=== PATIENT | female | born 1925 | race Caucasian/White ===

== ENCOUNTER → 2016-12-05 | Outpatient (CLI) | payer OTHER, BC ==
[~2016-12-05] MED LIST: ASPEC81 PO; CARB25TA12 PO; CEPH500C PO; CLC100 PO; ERGO500037 PO; FOCUS SELECT PO; FURO40TA3 PO; PANT40TA PO; PRED1SUS3 OPR; RXC5 PO; SPIR25TA89 PO
[2016-12-05 10:58] LABS: BASO % 0.6 %; BASO ABS # 0.04 K/uL (0-0.2); COMPLETE YES; EOS % 2.7 %; HEMATOCRIT 40.9 % (37-47); IG% 0.2 %; MEAN CELL VOLUME 92.7 fL (80-100); MEAN CORPUSCULAR HEMOGLOBIN 31.1 pg (25-34); MEAN CORPUSCULAR HGB CONC 33.5 g/dl (32-36); MEAN PLATELET VOLUME 10.6 fL (7.4-10.4); MONO % 6.3 %; NEUT % 61.2 %; PLATELET COUNT 272 K/uL (130-400); RED BLOOD COUNT 4.41 M/uL (4.2-5.4); WHITE BLOOD COUNT 6.56 K/uL (4.8-10.8)
== END | disposition home or self-care (01) ==
LOC: C.LABFOXDH 15:49
PROVIDERS: ATTEND Nurse Practitioner Family
DX: M79.605 Pain in left leg (principal)

== ENCOUNTER → 2016-12-08 | Outpatient (CLI) | payer OTHER, BC | END | disposition home or self-care (01) | LOC: C.LABFOXDH 08:52 | PROVIDERS: ATTEND Internal Medicine | DX: M25.50 Pain in unspecified joint (principal) ==

== ENCOUNTER → 2016-12-18 | Outpatient (CLI) | payer OTHER, BC | END | disposition home or self-care (01) | LOC: C.LABFOXDH 11:51 | PROVIDERS: ATTEND Nurse Practitioner Family | DX: R39.15 Urgency of urination (principal) ==

== ENCOUNTER → 2017-01-19 | Outpatient (CLI) | payer OTHER, BC ==
--- NOTE | 2017-01-20 11:23 | CODING QUERY NO DIAGNOSIS ---
TREATMENT RENDERED WITHOUT A DIAGNOSIS 05/21/27 To promote full compliance with coding requirements relating to patient care, physician participation is requested in all cases of refresh technician uncertainty. Please assist us with providing a diagnosis/symptom for the test(s) below: A diagnosis/symptom was not documented on your Order. A valid diagnosis/symptom is required to bill all insurances. Please remember that we are unable to code a diagnosis of rule out, probable, possible, questionable, or suspected. DOS 01/19/17 Tests that require a diagnosis: * URIC ACID DIAGNOSIS: *ON YOUR ORDER YOU HAVE DX CODE M10, THIS IS AN INVALID CODE, CAN YOU PLEASE ADD CORRECT DX CODE Provider Signature: Date: Thank you Nuris Larsen Health Information Management Once completed, please kindly fax back to [phone] For questions please call [phone]
== END ==
LOC: C.LABFOXDH 09:51
PROVIDERS: ATTEND Nurse Practitioner Family
DX: M25.50 Pain in unspecified joint (principal)

== ENCOUNTER → 2017-02-06 | Outpatient (CLI) | payer OTHER, BC ==
[2017-02-06 12:34] LABS: HEMATOCRIT 41.6 % (37-47); MEAN CELL VOLUME 95.9 fL (80-100); MEAN CORPUSCULAR HEMOGLOBIN 30.9 pg (25-34); MEAN CORPUSCULAR HGB CONC 32.2 g/dl (32-36); MEAN PLATELET VOLUME 10.5 fL (7.4-10.4); PLATELET COUNT 263 K/uL (130-400); RED BLOOD COUNT 4.34 M/uL (4.2-5.4); WHITE BLOOD COUNT 6.15 K/uL (4.8-10.8)
[2017-02-06 12:57] LABS: BLOOD UREA NITROGEN 20 mg/dl (7-18); BUN/CREATININE RATIO 20.2 (10-20); CARBON DIOXIDE 33 mmol/L (21-32); CHLORIDE 103 mmol/L (98-107); GLUCOSE 109 mg/dl (70-99); POTASSIUM 3.7 mmol/L (3.5-5.1); SODIUM 143 mmol/L (136-145)
== END ==
LOC: C.LABFOXDH 09:08
PROVIDERS: ATTEND Internal Medicine
DX: I10 Essential (primary) hypertension (principal); M26.629 Arthralgia of temporomandibular joint, unspecified side

== ENCOUNTER 2017-03-05 19:58 | Emergency (ER) | payer OTHER, BC ==
[~2017-03-05] VITALS: Ht 157.5 cm; Wt 70.0 kg
[~2017-03-05 19:58] MED LIST changes: -CEPH500C PO
[2017-03-05 20:04] VITALS: TEMP 36.6; Ht 157.5 cm; Wt 70.0 kg
[2017-03-05] MEDS ORDERED: LIDOCAINE/EPINEPHRINE 1% 20 ML VIAL ONE (20:14)
[2017-03-05] MEDS ORDERED: CEPHALEXIN 500MG HOME PACK 1 EA BTL PO ONE (20:45)
[2017-03-05] MEDS ORDERED: CEPH500C PO (20:49)
--- NOTE | 2017-03-05 20:51 | EMERGENCY ROOM VISIT NOTE ---
History First contact with patient: 20:08 Chief Complaint: LACERATION/CUT (SUT/DERMABOND) Stated Complaint: Laceration Nursing Triage Summary: pt to the ED [facility] from [facility] where one of the nurses there was taking off a stocking and cut pt out left ankle/cabrera with her finger nail and there is a laceration/skin tear has been bleeding since. the dr there cauterized it and it is still bleeding this happened around noon per pt History of Present Illness The patient is a 89 year old female who presents to the Emergency Room with complaints of left leg laceration. The patient resides at [facility]. The patient states that today she had her toenails cut. She states that the nurse was helping with her stockings and accidentally cut the patient's leg with her fingernail. They attempted to cauterize the wound and apply a dressing but it continues to bleed. The patient states this occurred around 2 PM. The patient did not fall or have any other injuries. The patient takes aspirin. She states she does not take any anticoagulants. The patient states her tetanus is up-to-date. Review of Systems A 6 system review of systems was completed with positives and pertinent negatives listed in the HPI. Past Medical/Surgical History Medical Problems: (1) Coronary Atherosclerosis Of [place] Coronary Vessel (2) Depressive Disorder Nec (3) Esophageal Reflux (4) Hyperlipidemia Nec/Nos (5) Hypertension Nos (6) Lumbago (7) Osteoarthros Nos-Unspec (8) Other Lymphedema Surgical Problems: (1) Hip Joint Replacement Status Social History Smoking Status: Never Smoker Alcohol Use: none Marital Status: Housing Status: assisted living Occupation Status: retired Current/Historical Medications Scheduled Aspirin (Aspirin EC Low Dose), 81 MG PO BID Carbidopa/Levodopa (Sinemet 25MG/100MG), 1 TAB PO TID Cephalexin Monohydrate (Keflex), 500 MG PO BID Docusate Sodium (Docusate Sodium), 100 MG PO BID Ergocalciferol (Vitamin D 14820 Unit), 50,000 UNIT PO 2XWK Furosemide (Lasix), 40 MG PO QAM Pantoprazole (Protonix), 1 TAB PO QAM Prednisolone Acetate 1% Oph (Pred Forte 1% Oph), 1 DROP OPR BID Spironolactone (Aldactone), 25 MG PO QAM [Focus Select], 1 TAB PO BID Scheduled PRN Oxycodone HCl (Oxycodone HCl), 5-10 MG PO Q4H PRN for Pain Allergies Coded Allergies: Iodine (Verified Allergy, Unknown, 11/28/15) Codeine (Verified Adverse Reaction, Mild, VOMITTING, 11/28/15) Adhesives (Verified Adverse Reaction, Unknown, 11/28/15) Fish Allergy (Verified Adverse Reaction, Unknown, Unknown Rxn, 11/28/15) Physical Exam Vital Signs Date Time Temp Pulse Resp B/P (MAP) Pulse Ox O2 Delivery O2 Flow Rate FiO2 03/05/17 22:01 88 20 145/80 98 03/05/17 21:00 80 18 150/88 98 03/05/17 20:04 36.6 74 18 162/87 98 Physical Exam VITALS: Vitals are noted on the nurse's note and reviewed by myself. Vital signs stable. GENERAL: This is an 89-year-old female, in no acute distress, nondiaphoretic, well-developed well-nourished. SKIN: There is a deep skin tear to the left lateral. The laceration measures approximately 4 cm in total length. There is a small arterial bleed. The wound edges gape with traction. The skin is very thin. There is no tenting of the skin. Capillary reflex less than 2 seconds. HEAD: Normocephalic atraumatic. EARS: The external ears are normal in appearance EYES: Pupils equal round and reactive to light and accommodation. Conjunctivae without injection, sclerae without icterus. Extraocular movements intact. NOSE: Patent, turbinates without inflammation or discharge. MOUTH: Mucous membranes moist. NECK: Supple without nuchal rigidity. No JVD. HEART: Regular rate and rhythm . LUNGS: Clear to auscultation bilaterally without wheezes, rales or rhonchi. No retractions or accessory muscle use. MUSCULOSKELETAL: There are chronic venous stasis changes to the bilateral lower extremities. There is a laceration to the left leg as above. Remaining extremities are otherwise unremarkable. NEURO: Patient was alert and oriented to person place and time. No focal neurological deficits. Medical Decision & Procedures Medications Administered Medications (Trade) Dose Ordered Sig/Mendy Route Start Time Stop Time Status Last Admin Dose Admin Cephalexin Monohydrate (Keflex 500MG Home Pack) 1 homepack NOW ONCE PO 03/05/17 20:45 03/05/17 20:46 DC 03/05/17 20:45 1 HOMEPACK Procedure Using sterile technique the wound was cleaned with Betadine. The area was sterilely draped. 3 ml of 1% buffered lidocaine with epinephrine was used to anesthetize the skin. Once the patient was numb, the wound was copiously irrigated under pressure with sterile saline. The wound was explored and there were no deep structures such as tendons, bone, or ligaments present. The small bleeding vessel was ligated with one simple interrupted 6-0 fast absorbing suture. The laceration was repaired using 9 simple interrupted 5-0 nylon sutures with the wound edges being well approximated. The skin is very thin and the sutures may pull through. The patient was advised of this. The patient tolerated the procedure well. The bleeding stopped. The area was cleaned with sterile saline and dressed with bacitracin ointment and bandage. An Ezra wrap was placed. ED Course The patient was seen and examined. Previous visits were reviewed. The patient has a skin tear/laceration with a bleeding vessel to the left leg. It was repaired as above. The patient does have very thin skin and it is possible that the sutures will pull through. She may eventually need to see the wound care center if this wound does not heal well. The patient will be placed on a short course of Keflex to help prevent infection given that this was from a fingernail and occurred over 6 hours ago. A pressure dressing was applied. The patient should return to the ER if any worsening symptoms. Otherwise, she should follow closely with Dr. House. The patient was also seen and examined by who agrees with the assessment and treatment plan. Medication Reconciliation: I attest that I have personally reviewed the patient' s current medication list. Blood pressure screening: The patient was found to have an elevated blood pressure and was referred to their primary care doctor for recheck and further treatment Medical Decision Differential diagnosis includes laceration, skin tear, arterial bleeding, cellulitis, foreign body, and others Impression Primary Impression: Laceration of leg Additional Impression: Skin tear Departure Information Dispostion Home / Self-Care Condition GOOD Prescriptions Cephalexin Monohydrate (Keflex) 500 Mg Cap 500 MG PO BID for 5 Days, #10 CAP Prov: Lindsay Torres PA-C 03/05/17 Referrals Stephanie Daniels (PCP) Patient Instructions ED Laceration All, My [facility] Additional Instructions Keep wound clean and dry. Do not allow any crusting or dried blood to accumulate on sutures. If this occurs, use a 1:1 solution of hydrogen peroxide/ water on a Q-tip to clean the wound. Use an antibiotic ointment for 3-4 days, then let wound dry. Suture removal in 10-12 days. Return sooner for any signs of infection (increasing redness, swelling, drainage). Ice and elevate for swelling and pain. Keep covered when in sun until sutures removed then SPF 50 or higher for one year. Vitamin E oil if desired two weeks after suture removal for reduction of scar. Keflex every 12 hours for 5 days to help prevent infection The skin is very thin and the sutures may pull through. This wound may eventually need to be evaluated by the wound care center. Problem Qualifiers
--- NOTE | 2017-03-05 21:00 | EMERGENCY ROOM VISIT NOTE ---
ED Visit Note First contact with patient: 20:08 I have seen and examined this patient with Lindsay Torres and generally agree with the treatment plan as discussed. Problem List Medical Problems: (1) Coronary Atherosclerosis Of [place] Coronary Vessel Status: Chronic (2) Depressive Disorder Nec Status: Chronic (3) Esophageal Reflux Status: Chronic (4) Hyperlipidemia Nec/Nos Status: Chronic (5) Hypertension Nos Status: Chronic (6) Lumbago Status: Chronic (7) Osteoarthros Nos-Unspec Status: Chronic (8) Other Lymphedema Status: Chronic Surgical Problems: (1) Hip Joint Replacement Status Status: Chronic Current/Historical Medications Scheduled Aspirin (Aspirin EC Low Dose), 81 MG PO BID Carbidopa/Levodopa (Sinemet 25MG/100MG), 1 TAB PO TID Cephalexin Monohydrate (Keflex), 500 MG PO BID Docusate Sodium (Docusate Sodium), 100 MG PO BID Ergocalciferol (Vitamin D 73323 Unit), 50,000 UNIT PO 2XWK Furosemide (Lasix), 40 MG PO QAM Pantoprazole (Protonix), 1 TAB PO QAM Prednisolone Acetate 1% Oph (Pred Forte 1% Oph), 1 DROP OPR BID Spironolactone (Aldactone), 25 MG PO QAM [Focus Select], 1 TAB PO BID Scheduled PRN Oxycodone HCl (Oxycodone HCl), 5-10 MG PO Q4H PRN for Pain Allergies Coded Allergies: Iodine (Verified Allergy, Unknown, 11/28/15) Codeine (Verified Adverse Reaction, Mild, VOMITTING, 11/28/15) Adhesives (Verified Adverse Reaction, Unknown, 11/28/15) Fish Allergy (Verified Adverse Reaction, Unknown, Unknown Rxn, 11/28/15) Vital Signs Date Time Temp Pulse Resp B/P (MAP) Pulse Ox O2 Delivery O2 Flow Rate FiO2 03/05/17 20:04 36.6 74 18 162/87 98 Departure Information Impression Primary Impression: Laceration of leg Additional Impression: Skin tear Dispostion Home / Self-Care Condition GOOD Prescriptions Cephalexin Monohydrate (Keflex) 500 Mg Cap 500 MG PO BID for 5 Days, #10 CAP Prov: Lindsay Torres PA-C 03/05/17 Referrals Stephanie Daniels (PCP) Forms HOME CARE DOCUMENTATION FORM, IMPORTANT VISIT INFORMATION Patient Instructions My [facility], ED Laceration All Additional Instructions Keep wound clean and dry. Do not allow any crusting or dried blood to accumulate on sutures. If this occurs, use a 1:1 solution of hydrogen peroxide/ water on a Q-tip to clean the wound. Use an antibiotic ointment for 3-4 days, then let wound dry. Suture removal in 10-12 days. Return sooner for any signs of infection (increasing redness, swelling, drainage). Ice and elevate for swelling and pain. Keep covered when in sun until sutures removed then SPF 50 or higher for one year. Vitamin E oil if desired two weeks after suture removal for reduction of scar. Keflex every 12 hours for 5 days to help prevent infection The skin is very thin and the sutures may pull through. This wound may eventually need to be evaluated by the wound care center. Problem Qualifiers
[2017-03-05 22:01] VITALS: BP 145/80; PULSE 88; O2SAT 98
== END 2017-03-05 21:50 | disposition home or self-care (01) ==
LOC: EDBD 19:58 → C.EDB 19:59
DX: S81.812A Laceration without foreign body, left lower leg, initial encounter (principal); W45.8XXA Other foreign body or object entering through skin, initial encounter; I25.10 Atherosclerotic heart disease of native coronary artery without angina pectoris; F32.9 Major depressive disorder, single episode, unspecified; K21.9 Gastro-esophageal reflux disease without esophagitis; E78.5 Hyperlipidemia, unspecified; I10 Essential (primary) hypertension; Z79.82 Long term (current) use of aspirin

== ENCOUNTER → 2017-03-26 | Outpatient (CLI) | payer OTHER, BC ==
--- NOTE | 2017-03-29 08:00 | MAMMOGRAPHY REPORT ---
BILATERAL DIGITAL SCREENING MAMMOGRAM WITH CAD: 03/26/2017 CLINICAL HISTORY: Routine screening. TECHNIQUE: Bilateral CC and MLO views were obtained. Current study was also evaluated with a Compute r Aided Detection (CAD) system. COMPARISON: Comparison is made to exams dated: 12/27/2014 mammogram, 11/14/2013 mammogram, 11/08/2012 ma mmogram, 09/19/2010 mammogram, 09/18/2009 mammogram - [facility], and 09/17/2008. BREAST COMPOSITION: The tissue of both breasts is heterogeneously dense, which may obscure small mas ses. FINDINGS: There is a 7 mm nodular asymmetry in the slightly medial, middle one third of the left jose eduardo ast on the CC view, thought to project just inferior to the posterior nipple line on the MLO view. A lthough this could represent a cyst or overlapping fibroglandular tissue, additional spot compression tomosynthesis views and possibly ultrasound are recommended. There are numerous circular mole markers overlying the breast. Scattered benign-appearing calcificat ions and mild vascular calcification. A stable randy-shaped metallic biopsy marker in the left breast. No other suspicious mass, architectural distortion or cluster of microcalcifications is seen. IMPRESSION: ACR BI-RADS CATEGORY 0: INCOMPLETE EVALUATION: NEED ADDITIONAL IMAGING EVALUATION The 7 mm nodular asymmetry in the medial left breast needs additional imaging evaluation. The patient will be called to schedule an appointment. Approximately 10% of breast cancers are not detected with mammography. A negative mammographic report should not delay biopsy if a clinically suggestive mass is present. Magaly Boyle M.D. ay/:03/26/2017 15:38:45 Attending Technologist: Francy Larson RT(R)(M), [facility] Mink Farmer: Keeley Alonzo RT(R)(M), [facility] letter sent: Addl Imaging 0 BI-RADS Code: ACR BI-RADS Category 0: Incomplete Evaluation: Need Additional Imaging Evaluation
== END ==
LOC: C.MAMM 14:20
PROVIDERS: ATTEND Internal Medicine
DX: Z12.31 Encounter for screening mammogram for malignant neoplasm of breast (principal); N64.89 Other specified disorders of breast

== ENCOUNTER → 2017-04-05 | Outpatient (CLI) | payer OTHER, BC ==
--- NOTE | 2017-04-05 14:05 | MAMMOGRAPHY REPORT ---
UNILATERAL LEFT DIGITAL DIAGNOSTIC MAMMOGRAM TOMOSYNTHESIS AND TARGETED LEFT ULTRASOUND: 04/05/2017 CLINICAL HISTORY: 89-year-old woman called back from screening mammography for a newly visualized 7 m m nodular asymmetry in the slightly medial left breast, best seen on the CC view. TECHNIQUE: Spot compression left CC and MLO 2-D and tomosynthesis images were obtained. COMPARISON: Comparison is made to exams dated: 03/26/2017 mammogram, 12/27/2014 mammogram, 11/14/2013 m ammogram, 11/08/2012 mammogram, 09/19/2010 mammogram, and 09/18/2009 mammogram - [facility] nter. BREAST COMPOSITION: The tissue of the left breast is heterogeneously dense, which may obscure small masses. FINDINGS: Spot compression views and corresponding tomosynthesis images of the left breast demonstrat e a persistent lobulated circumscribed 6 x 8 x 5 mm mass in the 9:00 middle one third of the left jose eduardo ast. No associated architectural distortion or microcalcification. There is other slight nodularity of the visualized left breast. There are benign appearing calcifications and a stable metallic biop sy marker. No focal area of architectural distortion or irregular mass. Targeted ultrasound was performed in the left breast with particular attention to the slightly medial aspect of the breast. In the 9:00 periareolar left breast, there is an oval parallel circumscribed anechoic benign simple cyst measuring 6.4 x 3.7 x 7.0 mm. This correlates well in location and shape as the mammographic mass and is benign. Incidental note is made of other anechoic benign simple cys ts scattered in the visualized left breast, in particular within the 7:00 left breast, 1 cm from the nipple, measuring 4 mm, and another anechoic cyst in the 4:00 periareolar left breast measuring 4.5 m m. No suspicious solid mass is seen. IMPRESSION: ACR BI-RADS CATEGORY 2: BENIGN, TARGETED ULTRASOUND ACR BI-RADS CATEGORY 2: BENIGN The 7 mm mass in the 9:00 middle one third of the left breast correlates with an anechoic benign simp le cyst on ultrasound. There are other scattered anechoic cysts in the visualized left breast compat ible with benign fibrocystic changes. There is no mammographic or targeted sonographic evidence of m alignancy. Return to annual mammogram screening schedule is recommended. The patient has been verbal ly notified of the results. Approximately 10% of breast cancers are not detected with mammography. A negative mammographic report should not delay biopsy if a clinically suggestive mass is present. Magaly Boyle M.D. ay/:04/05/2017 11:58:14 Shear Operator Automatic: Cami Castaneda, [facility] letter sent: Normal 1/2 BI-RADS Code: ACR BI-RADS Category 2: Benign Ultrasound BI-RADS: ACR BI-RADS Category 2: Benign
== END | disposition home or self-care (01) ==
LOC: C.MAMM 09:59
PROVIDERS: ATTEND Internal Medicine
DX: R92.8 Other abnormal and inconclusive findings on diagnostic imaging of breast (principal); N60.02 Solitary cyst of left breast